=== PATIENT | male | born 1965 | race Caucasian/White ===

== ENCOUNTER 2024-10-07 10:54 | Outpatient (REF) | payer BC, SELFPAY ==
--- OUTSIDE RECORDS SUMMARY | 2024-10-07 12:34 | XMS_ITS | Clinical Summary ---
Author Organization 175 [facility] Address [address] [place] [address] Phone Care Team Providers Care Renewals Representative Name Role Phone Madeleine Goldman MD Primary Care Provider + [phone] Allergies Active Allergy Reactions Criticality Noted Date Comments Gluten 09/17/2023 Svioicq-Hzs-Uoz Reductase Inhibitors 09/17/2023 severe myalgias Medications amLODIPine (NORVASC) 10 mg tablet Take 1 Tablet by mouth. 07/08/19 24 Active cholecalcifero l (VITAMIN D-3) 25 mcg (1,000 unit) capsule Take 25 mcg by mouth. 01/01/20 23 Active ezetimibe (ZETIA) 10 mg tablet Take 1 Tablet by mouth. 07/08/19 24 Active lisinopriL (PRINIVIL,ZEST RIL) 20 mg tablet Take 1 Tablet by mouth. 07/08/19 24 Active tadalafiL (CIALIS) 5 mg tablet Take 1 Tablet by mouth as needed. Active testosterone cypionate (DEPO-TESTOTER ONE) 200 mg/mL injection INJECT 0.4 MLS INTRAMUSCULARLY EVERY WEEK 12/22/19 22 Active ibuprofen (ADVIL,MOTRIN) 600 mg tablet Take 1 Tablet by mouth every 8 hours as needed for Pain for up to 30 days. 11/21/19 24 Active gabapentin (NEURONTIN) 100 mg capsule Take 1 capsule (100 mg total) by mouth 3 (three) times a day. 90 each 3 07/29/19 25 Active Repatha SureClick 140 mg/mL pen injector injection 08/17/19 Active Encounters Date Type Department Care Team Description 09/28/2024 8:15 AM EDT - 09/28/2024 11:59 PM EDT Hospital Encounter [facility] CT Scan [address] [place] [id number] S/P right inguinal hernia repair, follow-up exam Discharge Disposition: Home or Self Care 08/30/2024 9:45 AM EDT Office Visit [facility] [address] [facility] [address] [place] [phone] Elmer Mcallister, DO S/P right inguinal hernia repair, follow-up exam (Primary Dx) 07/28/2024 8:30 AM EDT Office Visit [facility] 175 [facility] [address] [place] [phone] Elmer Mcallister, DO S/P right inguinal hernia repair, follow-up exam (Primary Dx) from Last 3 Months Surgical History Surgery Date Site/Laterality Comments HERNIA REPAIR PROCEDURE: [place] REPAIR FIRST ABDOMINAL WALL HERNIA Social History Tobacco Use Types Packs/Day Years Used Date Smoking Tobacco: Former Alcohol Use Standard Drinks/Week Comments Yes 0 (1 standard drink = 0.6 oz pur e alcohol) Sex and Gender Information Value Date Recorded Sex Assigned at Male 09/02/2024 2:15 PM EDT Legal Sex Male 11:04 AM EDT Gender Identity Male 09/02/2024 2:15 PM EDT Sexual Orientation Straight 09/02/2024 2: 15 PM EDT Obstetrics History Last Filed Vital Signs Vital Sign Reading Time Taken Comments Blood Pressure 165/94 08/30/2024 9:29 AM EDT Pulse 94 08/30/2024 9:29 AM EDT Temperature 36.4 C (97.5 F) 08/30/2024 9:29 AM EDT Respiratory Rate - - Oxygen Saturation - - Inhaled Oxygen Concentration - - Weight 98.4 kg (217 lb) 08/30/2024 9:29 AM EDT Height 175.3 cm (5' 9 ) 08/30/2024 9:29 AM EDT Body Mass Index 32.05 08/30/2024 9:29 AM EDT Plan of Treatment Health Maintenance Due Date Last Done Comments Hepatitis B Vaccines (1 of 3 - 19+ 3-dose series) 10/16/1986 COVID-19 Vaccine (3 - Pfizer risk series) 10/26/2020 09/28/2020, 09/07/2020 Cholesterol Screening (Lipid Panel) 11/13/2023 Colorectal Cancer Screening: Colonoscopy 11/13/2023 Depression Screening 11/13/2023 HIV Screening 11/13/2023 Hepatitis C Screening 11/13/2023 Social Influencers of Health Screening 11/13/2023 Influenza Vaccine (Season Ended) 2024 Hypertension/CHF/CAD Annual BMP Blood Test 08/30/2025 08/30/2024 DTaP,Tdap,and Td Vaccines (2 - Td or Tdap) 06/28/2032 06/28/2022 Pneumococcal Vaccine: 50+ Years Completed 06/28/2022 Pneumococcal Vaccine: Pediatrics (0 to 5 Years) and At-Risk Patients (6 to 64 Years) Completed 06/28/2022 Zoster Vaccines Completed 03/22/2024, 12/01/2023 HIB Vaccines Aged Out No longer eligi ble based on patient's age to complete this topic HPV Vaccines Aged Out No longer eligi ble based on patient's age to complete this topic Hepatitis A Vaccines Aged Out No long er eligible based on patient's age to complete this topic IPV Vaccines Aged Out No longer eligi ble based on patient's age to complete this topic MMR Vaccines Aged Out No longer eligi ble based on patient's age to complete this topic Meningococcal ACWY Vaccine Aged Out N o longer eligible based on patient's age to complete this topic Meningococcal B Vaccine Aged Out No l onger eligible based on patient's age to complete this topic RSV Immunization Patients Under 20 months Aged Out No longer eligible b ased on patient's age to complete this topic Varicella Vaccines Aged Out No longer eligible based on patient's age to complete this topic Procedures Procedure Name Priority Date/Time Associated Diagnosis Comments CT ABDOMEN PELVIS W CONTRAST Routine 09/28/2024 8:38 AM EDT S/P right inguinal hernia repair, follow-up exam BASIC METABOLIC PANEL Routine 08/30/2024 10:14 AM EDT S/P right inguinal hernia repair, follow-up exam from Last 3 Months Results * CT Abdomen Pelvis w Contrast (09/28/2024 8:38 AM EDT) Anatomical Region Laterality Modality Body Computed Tomogra phy 09/28/2024 11:5 1 AM EDT Impressions 09/28/2024 12:02 PM EDT No recurrent hernia visible on CT. No acute findings. -------- FINAL REPORT -------- Dictated By: Cristina Khan Dictated Date: 09/28/2024 11:51 ET Assigned Physician: Cristina Khan Reviewed and Electronically Signed By: Cristina Khan Signed Date: 09/28/2024 12:02 ET Workstation ID: [id number] Transcribed By: Self Edit Transcribed Date: 09/28/2024 11:51 ET Narrative 09/28/2024 12:02 PM EDT PROCEDURE: CT ABDOMEN/PELVIS WITH CONTRAST INDICATION: r/o recurrence, femoral, right inguinal hernia TECHNIQUE: CT of the abdomen and pelvis following the intravenous administration of 90cc Isovue 370. Multiplanar reformats. The examination was performed utilizing dose reduction techniques. Total DLP 1254 COMPARISON: No priors available. FINDINGS: LOWER THORAX: Lung bases are clear. HEPATOBILIARY: No focal liver lesions. No cholelithiasis or biliary duct dilatation. SPLEEN: No focal lesion. PANCREAS: No focal mass or ductal dilatation. ADRENALS: No nodules. KIDNEYS/URETERS: No hydronephrosis, stones, or solid mass. PELVIC ORGANS/BLADDER: Unremarkable. PERITONEUM / RETROPERITONEUM: No ascites or free air. No retroperitoneal lymphadenopathy. VESSELS: Scattered atherosclerotic calcifications throughout the aorta and its major branches. No aneurysm. GI TRACT: No bowel distention or wall thickening. Normal appendix. Distal colonic underdistention. BONES AND SOFT TISSUES: Scattered degenerative changes seen throughout the bones. Prior right inguinal hernia repair. No CT evidence for recurrent hernia. Procedure Note Cristina Khan MD - 09/28/2024 PROCEDURE: CT ABDOMEN/PELVIS WITH CONTRAST INDICATION: r/o recurrence, femoral, right inguinal hernia TECHNIQUE: CT of the abdomen and pelvis following the intravenousadministration of 90cc Isovue 370. Multiplanar reformats. The examinationwas performed utilizing dose reduction techniques. Total DLP 1254 COMPARISON: No priors available. FINDINGS: LOWER THORAX: Lung bases are clear. HEPATOBILIARY: No focal liver lesions. No cholelithiasis or biliary ductdilatation. SPLEEN: No focal lesion. PANCREAS: No focal mass or ductal dilatation. ADRENALS: No nodules. KIDNEYS/URETERS: No hydronephrosis, stones, or solid mass. PELVIC ORGANS/BLADDER: Unremarkable. PERITONEUM / RETROPERITONEUM: No ascites or free air. No retroperitoneallymphadenopathy. VESSELS: Scattered atherosclerotic calcifications throughout the aorta andits major branches. No aneurysm. GI TRACT: No bowel distention or wall thickening. Normal appendix. Distalcolonic underdistention. BONES AND SOFT TISSUES: Scattered degenerative changes seen throughout thebones. Prior right inguinal hernia repair. No CT evidence for recurrenthernia. IMPRESSION: No recurrent hernia visible on CT. No acute findings. -------- FINAL REPORT -------- Dictated By: Cristina Khan Dictated Date: 09/28/2024 11:51 ET Assigned Physician: Cristina Khan Reviewed and Electronically Signed By: Cristina Khan Signed Date: 09/28/2024 12:02 ET Workstation ID: [id number] Transcribed By: Self Edit Transcribed Date: 09/28/2024 11:51 ET Elmer Mcallister DO [facility] CT PROCEDURES Final Result * Basic metabolic panel (08/30/2024 10:14 AM EDT) Sodium 137 133 - 145 mmol/L LAB CHEMISTR[facility] Potassium 4.0 3.5 - 5.5 mmol/L LAB CHEMISTRY METHOD 08/30/2024 1:52 PM [facility] Chloride 104 96 - 110 mmol/L LAB CHEMISTRY METHOD 08/30/2024 1:52 PM [facility] CO2 26 21 - 32 mmol/L LAB CHEMISTRY METHOD 08/30/2024 1:52 PM [facility] Anion Gap 7 3 - 11 LAB CHEMISTRY METHOD 08/30/2024 1:52 PM EDT [facility] Glucose 97 70 - 100 mg/dL LAB CHEMISTRY METHOD 08/30/2024 1:52 PM EDT [facility] BUN 25 5 - 25 mg/dL LAB CHEMISTRY METHOD 08/30/2024 1:52 PM EDT [facility] Creatinine 0.92 0.70 - 1.30 mg/dL LAB CHEMISTRY METHOD 08/30/2024 1:52 PM EDT [facility] eGFR 98 >=60 mL/min/1. 73m2 LAB CHEMISTRY METHOD 08/30/2024 1:52 PM EDT [facility] Comment:Calculation based on the Chronic Kidney Disease Epidemiology Collaboration (CKD-EPI) equation refit without adjustment for race. BUN/Creatinine Ratio 27.2 LAB CHEMISTRY METHOD 08/30/2024 1:52 PM EDT [facility] Calcium 9.1 8.5 - 10.5 mg/dL LAB CHEMISTRY METHOD 08/30/2024 1:52 PM EDT [facility] Blood Venous blood specimen / Unknown Venipuncture / Unknown 08/30/2024 10:14 AM EDT 08/30/2024 11:19 AM EDT us Elmer Mcallister DO LAB BLOOD ORDERABLES Final Res ult [facility] [address] [place] [address], from Last 3 Months Insurance [facility] Care Teams Renewals Representative Relationship Specialty Start Date End Date Madeleine Goldman MD [address] [place] [address] PCP - General Internal Medicine 07/27/24
== END 2024-10-07 10:55 | disposition home or self-care (01) ==
LOC: HO.BBR 10:54
PROVIDERS: PCP Internal Medicine; Visit Provider Nurse Practitioner Family
DX: D75.1 Secondary polycythemia (principal)
CPT/HCPCS: 85014; 85018; 99195

== ENCOUNTER 2025-04-07 15:27 | Outpatient (REF) | payer BC, SELFPAY ==
--- OUTSIDE RECORDS SUMMARY | 2025-04-07 19:25 | XMS_ITS | Clinical Summary ---
Author Organization 175 [facility] Address [address] [place] [address] Phone Care Team Providers Care Blade Sharpener Name Role Phone Madeleine Goldman MD Primary Care Provider + [phone] Allergies Active Allergy Reactions Criticality Noted Date Comments Gluten 09/17/2023 Xgkqzsi-Kvs-Xaj Reductase Inhibitors 09/17/2023 severe myalgias Medications amLODIPine (NORVASC) 10 mg tablet Take 1 Tablet by mouth. 07/08/19 24 Active cholecalcifero l (VITAMIN D-3) 25 mcg (1,000 unit) capsule Take 25 mcg by mouth. 01/01/20 23 Active lisinopriL (PRINIVIL,ZEST RIL) 20 mg tablet Take 1 Tablet by mouth. 07/08/19 24 Active tadalafiL (CIALIS) 5 mg tablet Take 1 Tablet by mouth as needed. Active testosterone cypionate (DEPO-TESTOTER ONE) 200 mg/mL injection INJECT 0.4 MLS INTRAMUSCULARLY EVERY WEEK 12/22/19 22 Active Repatha SureClick 140 mg/mL pen injector injection 08/17/19 25 Active Surgical History Surgery Date Site/Laterality Comments HERNIA REPAIR PROCEDURE: [place] REPAIR FIRST ABDOMINAL WALL HERNIA VASECTOMY APPENDECTOMY Medical History Medical History Date Comments Hypertension Polycythemia Hypercholesteremia Family History Medical History Relation Name Comments Thyroid disease Father Hyperlipidemia Mother Relation Name Status Comments Father Mother Social History Tobacco Use Types Packs/Day Years Used Date Smoking Tobacco: Former Tobacco Cessation:Counseling Given: Not Answered Alcohol Use Standard Drinks/Week Comments Yes 0 (1 standard drink = 0.6 oz pur e alcohol) Sex and Gender Information Value Date Recorded Sex Assigned at Male 09/02/2024 2:15 PM EDT Legal Sex Male 11:04 AM EDT Gender Identity Male 09/02/2024 2:15 PM EDT Sexual Orientation Straight 09/02/2024 2: 15 PM EDT Last Filed Vital Signs Vital Sign Reading Time Taken Comments Blood Pressure 134/79 01/03/2025 11:02 AM EDT Pulse 91 01/03/2025 11:02 AM EDT Temperature 36.7 C (98.1 F) 01/03/2025 11:02 AM EDT Respiratory Rate - - Oxygen Saturation 98% 01/03/2025 11:02 AM EDT Inhaled Oxygen Concentration - - Weight 94.8 kg (209 lb) 01/03/2025 11:02 AM EDT Height 175.3 cm (5' 9 ) 12/08/2024 8:35 AM EDT Body Mass Index 30.86 12/08/2024 8:35 AM EDT Plan of Treatment Health Maintenance Due Date Last Done Comments Colorectal Cancer Screening: Colonoscopy 1967 Hepatitis B Vaccines (1 of 3 - 19+ 3-dose series) 10/16/1986 Cholesterol Screening (Lipid Panel) 11/13/2023 HIV Screening 11/13/2023 Hepatitis C Screening 11/13/2023 Social Influencers of Health Screening 11/13/2023 Depression Screening 04/21/2024 COVID-19 Vaccine (3 - 2024-2 6 season) 2024 09/28/2020, 09/07/2020 Influenza Vaccine (#1) 2024 Hypertension/CHF/CAD Annual BMP Blood Test 12/08/2025 12/08/2024, 08/30/2024 DTaP,Tdap,and Td Vaccines (2 - Td or Tdap) 06/28/2032 06/28/2022 RSV Immunization Adult Patients (1 - 1-dose 75+ series) 10/16/2042 Pneumococcal Vaccine: 50+ Years Completed 06/28/2022 Zoster Vaccines Completed 03/22/2024, 12/01/2023 [...] Procedure Name Priority Date/Time Associated Diagnosis Comments COMPREHENSIVE METABOLIC PANEL Routine 12/08/2024 9:04 AM EDT Polycythemia from Last 3 Months or Most Recently Relevant to Health Maintenance Results * (ABNORMAL) Comprehensive metabolic panel (12/08/2024 9:04 AM EDT) Sodium 135 133 - 145 mmol/L LAB CHEMISTRY METHOD 12/08/2024 12:57 PM [facility] Potassium 4.1 3.5 - 5.5 mmol/L LAB CHEMISTRY METHOD 12/08/2024 12:57 PM [facility] Chloride 101 96 - 110 mmol/L LAB CHEMISTRY METHOD 12/08/2024 12:57 PM [facility] CO2 27 21 - 32 mmol/L LAB CHEMISTRY METHOD 12/08/2024 12:57 PM [facility] Anion Gap 7 3 - 11 LAB CHEMISTRY METHOD 12/08/2024 12:57 PM [facility] Glucose 103(H) 70 - 100 mg/dL LAB CHEMISTRY METHOD 12/08/2024 12:57 PM [facility] BUN 23 5 - 25 mg/dL LAB CHEMISTRY METHOD 12/08/2024 12:57 PM [facility] Creatinine 1.07 0.70 - 1.30 mg/dL LAB CHEMISTRY METHOD 12/08/2024 12:57 PM [facility] eGFR 81 >=60 mL/min/1. 73m2 LAB CHEMISTRY METHOD 12/08/2024 12:57 PM [facility] Comment:Calculation based on the Chronic Kidney Disease Epidemiology Collaboration (CKD-EPI) equation refit without adjustment for race. BUN/Creatinine Ratio 21.5 LAB CHEMISTRY METHOD 12/08/2024 12:57 PM [facility] Calcium 9.3 8.5 - 10.5 mg/dL LAB CHEMISTRY METHOD 12/08/2024 12:57 PM [facility] AST (SGOT) 78(H) 10 - 42 unit/L LAB CHEMISTRY METHOD 12/08/2024 12:57 PM [facility] ALT (SGPT) 174(H) 10 - 60 unit/L LAB CHEMISTRY METHOD 12/08/2024 12:57 PM [facility] Alkaline Phosphatase 45 42 - 121 unit/L LAB CHEMISTRY METHOD 12/08/2024 12:57 PM [facility] Total Protein 7.2 6.0 - 8.0 g/dL LAB CHEMISTRY METHOD 12/08/2024 12:57 PM [facility] Albumin 3.8 3.2 - 5.0 g/dL LAB CHEMISTRY METHOD 12/08/2024 12:57 PM [facility] Total Bilirubin 0.6 0.0 - 1.4 mg/dL LAB CHEMISTRY METHOD 12/08/2024 12:57 PM [facility] Blood Venous blood specimen / Unknown Venipuncture / Unknown 12/08/2024 9:04 AM EDT 12/08/2024 12:05 PM EDT us Amanda Schmidt MD LAB BLOOD ORDERABLES Final R esult [facility] [address] [place] [address], from Last 3 Months or Most Recently Relevant to Health Maintenance Insurance [facility] Care Teams Blade Sharpener Relationship Specialty Start Date End Date Madeleine Goldman MD [address] [place] [address] PCP - General Internal Medicine 07/27/24
== END 2025-04-07 15:28 | disposition home or self-care (01) ==
LOC: HO.BBR 15:27
DX: D75.1 Secondary polycythemia (principal)
CPT/HCPCS: 85018; 99195